=== PATIENT | male | born 1970 | race Caucasian/White ===

== ENCOUNTER 2019-04-03 18:30 | Inpatient (IN) | payer BC ==
[~2019-04-03] VITALS: Ht 175.3 cm; Wt 93.9 kg
[2019-04-03 18:35] VITALS: BP_SYST 117
[2019-04-03] MEDS ORDERED: NS 1000 ML IV.SOLN IV ONE (18:45)
[2019-04-03] MEDS ORDERED: NACL 0.9% 1,000 ML IV ONE (18:45)
[2019-04-03] MEDS ORDERED: methylPREDNISolone SOD SUCC/PF 62.5 MG/ML VIAL IVP ONE (18:45)
[2019-04-03] MEDS ORDERED: INSULIN REGULAR, HUMAN 10 UNITS/0.1 ML INJ IVP ONE ×2 (18:45→20:45)
[2019-04-03] MEDS ORDERED: FAMOTIDINE PF 20 MG/2 ML VIAL IVP ONE (18:45)
[2019-04-03 19:29] LABS: BASOPHILS # (AUTO) 0.1 K/uL (0.0-0.2); BASOPHILS % (AUTO) 0.9 % (0.0-2.0); EOSINOPHILS # (AUTO) 0.1 K/uL (0.0-0.4); EOSINOPHILS % (AUTO) 0.7 % (0.0-4.0); HEMATOCRIT 50.5 % (36-54); LYMPHOCYTES # (AUTO) 3.8 K/uL (1.0-5.5); MEAN CORPUSCULAR HEMOGLOBIN 32 pg (27-31); MEAN CORPUSCULAR HGB CONC 34 % (32-36); MEAN CORPUSCULAR VOLUME 95 fL (79.0-98.0); MONOCYTES # (AUTO) 0.3 K/uL (0.0-1.0); MONOCYTES % (AUTO) 2.5 % (1.7-9.3); NEUTROPHILS # (AUTO) 6.7 K/uL (1.8-7.7); NEUTROPHILS % (AUTO) 60.9 % (40.0-70.0); PLATELET COUNT (AUTO) 417 K/uL (130-430); RED BLOOD CELL COUNT(AUTO) 5.31 MIL/uL (4.2-6.2)
[2019-04-03 19:40] LABS: ACETONE, SERUM NEGATIVE (NEGATIVE)
[2019-04-03 19:53] LABS: ALBUMIN 2.9 g/dL (3.4-4.8); ANION GAP 13 (5-15); CALCIUM 8.1 mg/dL (8.4-11.0); CHLORIDE 91 mmol/L (98-107); CREATININE 1.92 mg/dL (0.55-1.30); POTASSIUM 3.7 mmol/L (3.5-5.1); SODIUM SERUM 126 mmol/L (136-145); TOTAL BILIRUBIN 0.9 mg/dL (0.0-1.0); UREA NITROGEN, BLOOD 18 mg/dL (8-21)
[2019-04-03 20:17] LABS: ASPARTATE AMINOTRANSFERASE 45 U/L (10-37)
[2019-04-03 20:20] LABS: ALANINE AMINOTRANSFERASE 36 U/L (12-78)
[2019-04-03 21:09] LABS: GLUCOSE 773 mg/dL (70-99)
[2019-04-03 21:30] LABS: BILIRUBIN,URINE NEGATIVE (NEGATIVE); BLOOD, URINE NEGATIVE (NEGATIVE); CLARITY/URINE CLEAR (CLEAR); COLOR,URINE YELLOW (YELLOW); GLUCOSE,URINE 3+ (NEGATIVE); KETONES,URINE NEGATIVE (NEGATIVE); LEUKOCYTE ESTERASE ,URINE NEGATIVE (NEGATIVE); NITRITE, URINE NEGATIVE (NEGATIVE); PH,URINE 5.5 (5.0-8.0); PROTEIN URINE NEGATIVE (NEGATIVE); UROBILINOGEN,URINE 0.2 (0.2-1.0)
[2019-04-03] MEDS ORDERED: DIPHENHYDRAMINE INJ 50 MG/ML VIAL IVP PRN (21:30)
[2019-04-03 21:41] LABS: INR 1.1 (0.80-1.20); PROTHROMBIN TIME 10.6 SECS (9.5-12.5)
[2019-04-03 22:09] LABS: BACTERIA,URINE FEW /HPF (None Seen); MUCUS,URINE None Seen /LPF (None Seen); RBC,URINE 0-3 /HPF (0-3); WBC,URINE 0-3 /HPF (0-3)
[2019-04-03 22:35] VITALS: BP_SYST 124
[2019-04-03] MEDS ORDERED: TRAZ-219 PO (23:15)
[2019-04-03] MEDS ORDERED: BUPR300T55 PO (23:19)
[2019-04-03] MEDS ORDERED: PRO20 PO (23:19)
[2019-04-03] MEDS ORDERED: FENO135C4 PO (23:19)
[2019-04-03] MEDS ORDERED: WELSR150 PO (23:19)
[2019-04-03] MEDS ORDERED: METF1000 PO (23:19)
[2019-04-03 23:55] VITALS: BP_SYST 124
[2019-04-04] MEDS: NACL 0.9% 1,000 ML IV SCH ×3 (02:09→17:22)
[2019-04-04] MEDS: INSULIN REGULAR, HUMAN 100 UNITS/ML, 10 ML VIAL (humuLIN R) SUBCUT PRN ×4 (02:11→17:29)
[2019-04-04 09:24] VITALS: BP_SYST 136
[2019-04-04 11:08] VITALS: BP_SYST 119
[2019-04-04 11:47] LABS: CALCIUM 8.4 mg/dL (8.4-11.0); CREATININE 1.19 mg/dL (0.55-1.30); POTASSIUM 4.4 mmol/L (3.5-5.1)
[2019-04-04 12:01] LABS: THYROID STIMULATING HORMONE 0.38 uIu/mL (0.36-3.74)
[2019-04-04 15:09] VITALS: BP_SYST 113
[2019-04-04 18:09] VITALS: BP_SYST 149
== END 2019-04-04 18:30 | disposition home or self-care (01) | DRG 683 ==
LOC: SED 18:30 → SMU 21:27
PROVIDERS: ADMIT Internal Medicine Hospice and Palliative Medicine; ATTEND Internal Medicine Hospice and Palliative Medicine
DX: N17.9 Acute kidney failure, unspecified (principal); T78.2XXA Anaphylactic shock, unspecified, initial encounter; E11.65 Type 2 diabetes mellitus with hyperglycemia; X58.XXXA Exposure to other specified factors, initial encounter; E78.5 Hyperlipidemia, unspecified; Z79.84 Long term (current) use of oral hypoglycemic drugs; Y93.89 Activity, other specified; Y92.89 Other specified places as the place of occurrence of the external cause; Y99.8 Other external cause status; Z83.3 Family history of diabetes mellitus
CPT/HCPCS: 36415; 36600; 71045; 80048; 80053; 81000-TC; 82009-TC; 82803-TC; 82962; 83036; 83605; 84443-TC; 84484; 85025; 85610-TC; 85730-TC; 87040-TC; 87086; 93005; 99285; J1815; J2930; J3490; J7030